=== PATIENT | male | born 2000 | race Caucasian/White ===

== ENCOUNTER 2024-06-22 15:58 | Emergency (ER) | payer OTHER, SELFPAY ==
[2024-06-22 16:23] VITALS: BP 133/89
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
[2024-06-22 16:54] VITALS: BP 135/81; BMI 29.0
[2024-06-22 17:42] VITALS: BP 125/87
== END 2024-06-22 17:50 | disposition home or self-care (01) ==
LOC: EMR 15:58
PROVIDERS: EMERGENCY PHYSICIAN Emergency Medicine; FAMILY PHYSICIAN Family Medicine
DX: S09.90XA Unspecified injury of head, initial encounter (principal); V89.2XXA Person injured in unspecified motor-vehicle accident, traffic, initial encounter; Y92.410 Unspecified street and highway as the place of occurrence of the external cause; I10 Essential (primary) hypertension
CPT/HCPCS: 99284; 70450; 72125